=== PATIENT | female | born 1975 | race Caucasian/White ===

== ENCOUNTER → 2017-10-02 | Day surgery (SDC) | payer OTHER ==
[~2017-10-02] VITALS: Ht 172.7 cm; Wt 76.3 kg
[~2017-10-02] MED LIST: *morphine SULFATE 4 MG/ML PERIprocedure ONLY ONE; ACETAMINOPHEN 1000 MG/100 ML 100 ML IV ONE; ACETAMINOPHEN/HYDROcodone 325 MG/5 MG TAB ONE; ACETAMINOPHEN/HYDROcodone 325 MG/5 MG TAB PO ONE; ACETAMINOPHEN/HYDROcodone 325 MG/5 MG TAB PO PRN; BUPIVACAINE/EPINEPHRINE 0.25% 50 ML VIAL ONE; CEFAZOLIN INJ 2,000 MG in SODIUM CHLORIDE 0.9% INJ 100 ML IV SCH; CHLORHEXIDINE GLUCONATE 2 % 1 PACK (2 CLOTHS) TOPICAL PRN; DEXAMETHASONE SOD PHOS 4 MG/ML VIAL IV ONE; DO NOT ADM ANY ANTICOAGULANT DRUGS PRN; GLYCOPYRROLATE 1 MG/5 ML SYRINGE IV PUSH ONE; HYDR-3516 PO; INSULIN HUMAN REGULAR 1,000 UNITS/10 ML VIAL SQ PRN; KETOROLAC TROMETHAMINE 30 MG/ML (IVP) VIAL IV PUSH ONE; KETOROLAC TROMETHAMINE 30 MG/ML (IVP) VIAL IVP PRN; LACTATED RINGER'S 1000 ML INJ 1,000 ML IV ONE; LACTATED RINGER'S 1000 ML INJ 1,000 ML IV SCH; LACTATED RINGER'S 1000 ML IV PRN; LIDOCAINE HCL 1% PF 5 ML SYRINGE OTHER ONE; MACR100C PO; METOPROLOL TARTRATE 25 MG TAB PO PRN; METRONIDAZOLE 500 MG/100 ML ISONTONIC SOLN IV SCH; MORPHINE SULFATE 8 MG/ML INJ IV PUSH PRN; NALOXONE HCL 0.4 MG/ML AMP IV PUSH PRN; NEOSTIGMINE 5 MG/5 ML SYRINGE IV PUSH ONE; ONDANSETRON HCL 4 MG/2 ML VIAL IV ONE; ONDANSETRON HCL 4 MG/2 ML VIAL IV PUSH PRN; PCA - TOTAL MG MORPHINE DELIVERED PER SHIFT SCH; POVIDONE IODINE 5% (ANTISEPSIS KIT) 4 APPLICATIONS EACH NARE PRN; PRENTAB50 OR; PROPOFOL 200 MG/20 ML AMP IV ONE; Post-op Orders (for Pharmacy) XX ONE; ROCURONIUM INJ 50 MG/5 ML SYRINGE IV PUSH ONE; SODIUM CHLORID 0.9% 500 ML IV PRN; ZOFR4TAB OR; [UNRECOGNIZED DRUG - REMARK]; diphenhydrAMINE HCL 25 MG CAP PO PRN
[2017-10-02 16:38] VITALS: BP 101/56; PULSE 68; RESP 18; TEMP 97.2; O2SAT 98
--- NOTE | 2017-10-12 15:04 | TN ---
cc: Anthony Cao MD DATE OF SURGERY: 10/02/2017 PREOPERATIVE DIAGNOSIS: Acute on chronic cholecystitis. POSTOPERATIVE DIAGNOSIS: Acute on chronic cholecystitis. PROCEDURE PERFORMED: Laparoscopic cholecystectomy. SURGEON: Anthony Cao MD ANESTHESIA: General endotracheal. COMPLICATIONS: None. INDICATION FOR PROCEDURE: Ms. Kaufman is a pleasant 41-year-old patient who was seen earlier this week in the office with complaints of right upper quadrant abdominal pain. She reports multiple episodes of right upper quadrant pain. Her current episode has lasted about a week. She was seen and evaluated in the office. Based on history and physical exam, it was felt acute cholecystitis was the most likely diagnosis. Risks and benefits of a cholecystectomy were discussed with her, and she was agreeable. PROCEDURE DETAILS: The patient was identified, brought to the operating room, placed supine on the operating table. After adequate general endotracheal anesthesia was achieved, the abdomen was prepped and draped in standard surgical fashion. Infraumbilical space anesthetized with 0.25% Marcaine. Infraumbilical incision was made. Dissection was carried down through subcutaneous tissue to midline fascia. Midline fascia was incised sharply. Finger was then placed in the peritoneal cavity without difficulty. Blunt balloon trocar was inserted, and the abdomen was insufflated to 15 mmHg using CO2 gas. Next, two 5 mm trocars were placed in the right upper quadrant under direct vision after anesthetizing the skin and subcutaneous tissue with 0.25% Marcaine. Attention was directed to the gallbladder, which was immediately identified. Gallbladder was noted to have a mild inflammatory change. There were some omental adhesions on the underside of it, which were taken down. Attention was directed to the gallbladder neck where the cystic artery and cystic duct were clearly identified in 2 planes. Once they were confirmed in 2 planes, they were clipped twice proximally, once distally and then divided. Gallbladder was then dissected out the hepatic fossa using electrocautery Bovie. Gallbladder was placed in an Endopouch bag and brought out through the infraumbilical port. Gallbladder was inspected and clips were in place with no evidence of leakage of bile. Gallbladder sent to pathology for analysis. Next, the abdominal cavity was re-visualized. The liver bed was completely hemostatic. Clips were in place on the cystic artery and cystic duct stump. There was no evidence of bleeding and no leakage of bile. Marcaine 0.25% was injected in the operative field. All trocars were removed under direct vision. Midline fascia was repaired with a 0 Vicryl in a [id number] fashion. Skin was closed with 4-0 Vicryl. The patient tolerated the procedure well, was awakened and brought to recovery in stable condition. Anthony MD MERARI Middleton/TED , 02:50 PM , 03:02 PM
== END | disposition home or self-care (01) ==
LOC: HSDC 09:33
PROVIDERS: ATTEND Surgery Trauma Surgery
DX: K80.12 Calculus of gallbladder with acute and chronic cholecystitis without obstruction (principal); R11.0 Nausea; R10.11 Right upper quadrant pain; Z80.41 Family history of malignant neoplasm of ovary
CPT/HCPCS: 00790; 47562; 88304; J0131; J1100; J1885; J2270; J2405; J2710; J3010; J7120

== ENCOUNTER 2018-04-27 05:41 | Observation (INO) ==
[2018-04-27] MEDS ORDERED: Chlorhexidine Gluconate 2% 1 Pack (2 Cloths) TOPICAL ONE (06:04)
[2018-04-27] MEDS ORDERED: Metoprolol Tartrate 25 MG Tablet PO ONE (06:04)
[2018-04-27] MEDS ORDERED: ceFAZolin 2 GM IV; once IV.SIG PRN (06:07)
[2018-04-27 06:55] LABS: Baso # (Auto) 0.1 th/mm3 (0.0-0.2); Baso % (Auto) 1.1 % (0.0-2.0); Eos # (Auto) 0.2 th/mm3 (0.0-0.4); Eos % (Auto) 4.6 % (0.0-4.0); Hematocrit 38.7 % (35.0-46.0); Hemoglobin 12.9 gm/dL (11.6-15.3); Lymph # (Auto) 1.5 th/mm3 (1.0-4.8); Lymph % (Auto) 29.1 % (9.0-44.0); Mean Corpuscular HGB Conc 33.3 % (32.0-36.0); Mean Corpuscular Hemoglobin 28.7 pg (27.0-34.0); Mean Corpuscular Volume 86.2 fL (80.0-100.0); Mean Platelet Volume 9.6 fL (7.0-11.0); Mono # (Auto) 0.4 th/mm3 (0.0-0.9); Mono % (Auto) 8.2 % (0.0-8.0); Neut # (Auto) 2.9 th/mm3 (1.8-7.7); Platelet Count 232 th/mm3 (150-450); Red Blood Count 4.48 mil/mm3 (4.00-5.30); Red Cell Distribution Width 14.2 % (11.6-17.2); White Blood Count 5.1 th/mm3 (4.0-11.0)
[2018-04-27] MEDS ORDERED: Sodium Chlor 0.9% Inj 500 ML IV.SIG SCH (07:00)
[2018-04-27] MEDS ORDERED: Lidocaine 1%/Epinephrine 1:100,000 Inj 30 ML Vial ONE (07:12)
[2018-04-27] MEDS ORDERED: Glycopyrrolate Inj 1 MG/5 ML Syringe IV.PUSH ONE (07:30)
[2018-04-27] MEDS ORDERED: Neostigmine Inj 5 MG/5 ML Syringe IV.PUSH ONE (07:30)
[2018-04-27] MEDS ORDERED: Lidocaine PF 1% Inj 5 ML Syringe OTHER ONE (07:30)
[2018-04-27] MEDS ORDERED: HYDROmorphone PF Inj 2 MG/ML Vial ONE (08:28)
[2018-04-27] MEDS ORDERED: HYDROmorphone PF Inj 1 MG/ML Ampul IV.PUSH PRN (09:17)
[2018-04-27] MEDS ORDERED: fentaNYL Citrate Inj 100 MCG/2 ML Ampul ONE ×2 (09:28)
[2018-04-27] MEDS ORDERED: *Meperidine Inj 25 MG/ML Vial PERIprocedural Use ONLY ONE (09:33)
--- NOTE | 2018-04-27 09:33 | P.PCNOB ---
Pre-Op/Post-Op Diagnoses Operation Date: 04/27/18 07:30 <No data on this case meets the specified criteria> excessive menses Procedure: Procedures Operation Date: 04/27/18 07:30 Actual Procedures Side Surgeon p LAPAROSCOPIC ASSISTED VAGINAL HYSTERECTOMY, LEFT SALPINGO OOPHERECTOMY, RIGHT SALPINGECTOMY Frank Palencia MD Tacking Machine Operator: Annalisa Cobian Estimated blood loss (ml): 200 Anesthesia type: General Complications: none Specimen: uterus, left tube & ovary, other (right tube) Disposition: floor Narrative: Patient was taken to the operating suite and laid supine on the operating table. After induction of general anesthesia, the both arms were tucked and she was placed in low stirrups. After prep and drape and time out, Olivas catheter was placed. A long weighted speculum was used to place the [place] uterine manipulator. After re-gloving a 0.5 cm incision was cut in the abdomen. The standard trocar was inserted 5 mm type, and the fact that the omentum was adherent to the anterior abdominal wall. 5 mm ports were placed in the right and left quadrants using direct visualization and transillumination to avoid adhesions and major vessels. Using the Harmonic device . The tube were from the ovary using harmonic energy on right and removed easily through the largest port. Left ovarian artery was cut with harmonic good hemostasis. using the harmonic device , the uterus was separate from the broad ligaments bilaterally, staying as close to the uterus as possible. The round ligaments were transected and the bladder flap was developed sharply. The cardinal and uterosacral ligaments were then transected, and we converted to vaginal approach. The ports were left in place. A long weighted speculum was used to visualize the cervix. Dilute lidocaine with epinephrine was injected circumferentially. A circumferential incision was then made around the cervix, and the posterior cul de sac was entered. The remainder of the uterosacral ligaments were clamp, pedicles cut and Geri suture ligatures were placed. The same followed for the cardinal ligaments. An additional bite was taken on the left before the uterus was free. It was removed from the field and the vaginal cuff was closed vertically in running locked stitch. 0 Vicryl was used throughout up to this point. The abdomen was then re-inflated and inspected by laparoscopy. No specific bleeder was found but Pina was applied to the vaginal cuff for further hemostasis. There was a small 8mm x 8mm area posterior wall of vagina excised and closed with vicryl The procedure being complete, the patient's ports were removed. The umbilical incision was closed with a deep 0 Vicryl on the facia, and then all three incisions were closed subcuticularly with 4-0 Monocryl. The patient was awakened and transported to the PACU wake and breathing on her own. Sponge, needle and instrument counts were normal.
[2018-04-27] MEDS ORDERED: *morphine SULFATE 4 MG/ML PERIprocedure ONLY ONE (09:53)
[2018-04-27] MEDS: Ketorolac Inj 30 MG/ML (IVP) Vial IV.PUSH PRN ×2 (12:42→18:29)
[2018-04-27] MEDS: Docusate Sodium 100 MG Capsule PO SCH (21:39)
[2018-04-28] MEDS: Ibuprofen 600 MG Tablet PO PRN ×2 (00:17→07:48)
[2018-04-28 05:50] LABS: Baso % (Auto) 0.2 % (0.0-2.0); Eos # (Auto) 0.3 th/mm3 (0.0-0.4); Eos % (Auto) 2.4 % (0.0-4.0); Hematocrit 35.5 % (35.0-46.0); Hemoglobin 11.7 gm/dL (11.6-15.3); Lymph # (Auto) 1.2 th/mm3 (1.0-4.8); Lymph % (Auto) 9.5 % (9.0-44.0); Mean Corpuscular Hemoglobin 28.8 pg (27.0-34.0); Mean Platelet Volume 9.4 fL (7.0-11.0); Mono # (Auto) 0.6 th/mm3 (0.0-0.9); Mono % (Auto) 4.6 % (0.0-8.0); Neut # (Auto) 10.5 th/mm3 (1.8-7.7); Neut % (Auto) 83.3 % (16.0-70.0); Platelet Count 185 th/mm3 (150-450); Red Blood Count 4.08 mil/mm3 (4.00-5.30); Red Cell Distribution Width 14.1 % (11.6-17.2); White Blood Count 12.6 th/mm3 (4.0-11.0)
[2018-04-28] MEDS: Docusate Sodium 100 MG Capsule PO SCH (08:13)
--- NOTE | 2018-04-28 08:28 | P.PNOB ---
Subjective Post op day: 1 Interval history: doing well after LAVH, Doing well ready for DC home Objective Vital Signs/I&O: Vital Signs 04/27/18 09:20 04/27/18 09:21 04/27/18 09:30 Temperature 97.4 F L Pulse Rate 77 78 53 L Respiratory Rate 19 13 12 Blood Pressure 127/76 124/71 124/70 Pulse Oximetry 100 97 96 04/27/18 09:45 04/27/18 10:00 04/27/18 10:15 Temperature Pulse Rate 50 L 52 L 63 Respiratory Rate 12 12 21 Blood Pressure 120/70 113/64 118/59 L Pulse Oximetry 92 L 96 100 04/27/18 10:30 04/27/18 11:05 04/27/18 16:00 Temperature 97.4 F L 98.1 F 98.6 F Pulse Rate 81 67 78 Respiratory Rate 29 H 18 20 Blood Pressure 104/58 L 113/72 Pulse Oximetry 97 100 98 04/27/18 19:59 04/27/18 23:56 04/28/18 04:30 Temperature 97.7 F 98.3 F 98.2 F Pulse Rate 54 L 61 72 Respiratory Rate 16 18 18 Blood Pressure 107/65 108/65 121/58 L Pulse Oximetry 97 97 96 Intake & Output 04/27/18 04/28/18 04/28/18 18:59 06:59 18:59 Intake Total 50 / 50 Output Total 800 / 800 Balance -750 / -750 Intake: IV 50 / 50 Ancef 2 GM Premix Inj 2 gm In 50 / 50 50 ml @ 100 mls/hr IV.SIG CLIENT REPRESENTATIVE PRN Rx#:[id number] Output: Urine 100 / 100 Estimated Blood Loss 150 / 150 Urine Amount (Catheter) 550 / 550 Indwelling Urethral Catheter 550 / 550 Result Diagrams: 04/28/18 05:05 Objective Remarks: GENERAL: Well-nourished, well-developed patient. ABDOMEN/GI: Abdomen soft, non-tender, bowel sounds present. Incision: Clean, dry and intact. Fundus: Firm, non-tender at umbilicus. GENITOURINARY: Light to moderate bleeding. EXTREMITIES: No cyanosis or edema, non-tender, without signs of DVT. Medications and IVs: Active Medications Docusate Sodium (Colace) 100 mg PO BID DWAYNE Last Admin: 04/28/18 08:13 Dose: 100 mg Hydromorphone HCl (Dilaudid Pf Inj) 1 mg IV.PUSH Q4H PRN PRN Reason: BREAKTHROUGH PAIN Last Admin: 04/27/18 14:36 Dose: 1 mg Sodium Chloride (Ns Inj) 500 mls @ 30 mls/hr IV.SIG .Q10H DWAYNE Last Admin: 04/27/18 10:53 Dose: Not Given Ibuprofen (Motrin) 600 mg PO Q6H PRN PRN Reason: Fever >101 F Last Admin: 04/28/18 07:48 Dose: 600 mg Ketorolac Tromethamine (Toradol Inj) 30 mg IV.PUSH Q6H PRN PRN Reason: ABDOMINAL CRAMPING Stop: 05/02/18 09:16 Last Admin: 04/27/18 18:29 Dose: 30 mg Miscellaneous Information ([facility] [place] [facility] Information) 0 each OTHER UNSCH PRN PRN Reason: SEE LABEL COMMENTS Stop: 04/28/18 09:22 Ondansetron HCl (Zofran Inj) 4 mg IV.PUSH Q6H PRN PRN Reason: NAUSEA OR VOMITING Last Admin: 04/27/18 12:47 Dose: 4 mg Oxycodone/Acetaminophen (Percocet 5/325 Mg) 2 tab PO Q4H PRN PRN Reason: PAIN SCALE 6 TO 10 Last Admin: 04/28/18 03:49 Dose: 2 tab Oxycodone/Acetaminophen (Percocet 5/325 Mg) 1 tab PO Q4H PRN PRN Reason: PAIN SCALE 1 TO 5 Last Admin: 04/28/18 07:47 Dose: 1 tab Sodium Chloride (Ns Flush) 2 ml IV.FLUSH BID DWAYNE Last Admin: 04/27/18 23:40 Dose: Not Given Sodium Chloride (Ns Flush) 2 ml IV.FLUSH PRN PRN PRN Reason: FLUSH AFTER USING IV ACCESS Assessment and Plan - Diagnosis (1) Excessive menses Code(s): N92.0 - Excessive and frequent menstruation with regular cycle Status : Acute - Plan nm home
--- NOTE | 2018-04-28 08:37 | P.DS ---
Date of admission: 04/27/18 10:47 Primary care physician: Mahesh Link MD Brief History from admission: 42 yo patient had HYST and is doing well. She is voiding and eating well DS: Diagnosis - Discharge Diagnosis (1) Excessive menses Status: Acute DS: Medications - Discharge Medications Prescriptions: oxycodone-acetaminophen 2 tab PO Q4H PRN 3 Days #24 tab PRN Reason: Pain Scale 6 To 10 DS: Summary Hospital Course: doing well after HYST - Time Spent with Patient Total time spent providing and/or coordinating discharge services: Less than 30 minutes - Quality: VTE Deep Vein Thrombosis/Pulmonary Embolism Present on Admission: No Exam Vital signs: Vital Signs 04/27/18 09:20 04/27/18 09:21 04/27/18 09:30 Temperature 97.4 F L Pulse Rate 77 78 53 L Respiratory Rate 19 13 12 Blood Pressure 127/76 124/71 124/70 Pulse Oximetry 100 97 96 04/27/18 09:45 04/27/18 10:00 04/27/18 10:15 Temperature Pulse Rate 50 L 52 L 63 Respiratory Rate 12 12 21 Blood Pressure 120/70 113/64 118/59 L Pulse Oximetry 92 L 96 100 04/27/18 10:30 04/27/18 11:05 04/27/18 16:00 Temperature 97.4 F L 98.1 F 98.6 F Pulse Rate 81 67 78 Respiratory Rate 29 H 18 20 Blood Pressure 104/58 L 113/72 Pulse Oximetry 97 100 98 04/27/18 19:59 04/27/18 23:56 04/28/18 04:30 Temperature 97.7 F 98.3 F 98.2 F Pulse Rate 54 L 61 72 Respiratory Rate 16 18 18 Blood Pressure 107/65 108/65 121/58 L Pulse Oximetry 97 97 96 Intake & Output 04/27/18 04/28/18 04/28/18 18:59 06:59 18:59 Intake Total 50 / 50 Output Total 800 / 800 Balance -750 / -750 Intake: IV 50 / 50 Ancef 2 GM Premix Inj 2 gm In 50 / 50 50 ml @ 100 mls/hr IV.SIG INSOLE REINFORCER PRN Rx#:[id number] Output: Urine 100 / 100 Estimated Blood Loss 150 / 150 Urine Amount (Catheter) 550 / 550 Indwelling Urethral Catheter 550 / 550 - Constitutional no acute distress - Routine Neck Exam Present: full ROM - Routine Respiratory Exam Present: CTA bilaterally - Routine Cardiovascular Exam Present: RRR - Routine Abdominal Exam Present: soft - Routine Extremities Exam Present: full ROM - Routine Neurological Exam Present: oriented X3 Results Procedures completed during hospitalization: LAURIE now doing well Pending studies at discharge: Pending at discharge 04/27/18 13:35 Surgical [PTH] Routine Labs on day of discharge: Labs from last 24 hours 04/28/18 05:05 WBC 12.6 H D RBC 4.08 Hgb 11.7 Hct 35.5 MCV 87.0 MCH 28.8 MCHC 33.0 RDW 14.1 Plt Count 185 MPV 9.4 Neut % (Auto) 83.3 H Lymph % (Auto) 9.5 [place] % (Auto) 4.6 Eos % (Auto) 2.4 Baso % (Auto) 0.2 Neut # (Auto) 10.5 H Lymph # (Auto) 1.2 [place] # (Auto) 0.6 Eos # (Auto) 0.3 Baso # (Auto) 0.0 WBC Differential . Differential Comment Auto diff final Discharge Plan - Discharge Disposition Patient Disposition: Discharge Home - Discharge Condition Condition: Good - Discharge Order Discharge Orders: Discharge Order (Routine); Ordered 04/28/18 Ordered By: Frank Palencia - Physicians Team Primary Care Provider: Mahesh Link Attending Provider: Frank Palencia - Rxs /Orders / Referrals /Forms Prescriptions: New oxycodone-acetaminophen 5-325 mg Tablet 2 tab PO Q4H PRN (Reason: Pain Scale 6 To 10) 3 Days Qty: 24 RF: 0 Continue [id number] [Daily Multivitamin] 200-100-500 mcg Capsule 1 tab PO DAILY Referrals: Frank Palencia MD [Physician] - See Instructions (2 weeks) Mahesh Link MD [Primary Care Provider] - See Instructions - Post Discharge Care Plan Care Plan Goals: We want you to have a wonderful recovery! Please Report the Following Symptoms to Your Doctor: -Temperature above 100.5 degrees -Redness of incision or excessive or foul smelling drainage -Unusual pain or calf pain -Increased vaginal bleeding -Painful or difficulty urinating Goals to Promote Your Health * To prevent worsening of your condition and complications * To maintain your health at the optimal level Directions to Meet Your Goals Take your medications as prescribed Follow your dietary instruction Follow activity as directed Ensure plenty of rest for recovery Drink fluids for hydration Keep your appointments as scheduled Take your immunizations and boosters as scheduled If your symptoms worsen call your NUTRITIONAL CHEMIST Physician, or go to an Urgent Care Center or Emergency Room Smoking is Dangerous to your health. Avoid second hand smoke Call the 24-hour crisis hotline for domestic abuse at
== END 2018-04-28 09:35 | disposition home or self-care (01) ==
LOC: H1EA 05:41 → HSDC 05:41
PROVIDERS: ADMIT Obstetrics & Gynecology; ATTEND Obstetrics & Gynecology